=== PATIENT | male | born 1995 | race Hispanic/Latino ===

== ENCOUNTER 2016-09-26 12:55 | Observation (INO) | payer OTHER ==
[~2016-09-26] VITALS: Ht 175.3 cm; Wt 104.3 kg
[~2016-09-26 12:55] MED LIST: ABILIFY10 MG OR; ABILIFY2 MG OR; ABILIFY20 MG PO; ABILIFY30 MG PO; ALLERGY1 TAB PO; AMOXICILLI125 MG/5 M OR; AMOXICILLIN500 MG PO; AMOXICILLIN875 MG PO; AUGMENTIN875TAB PO; CATAPRES0.2 MG PO; CITALOPRAM10 MG PO; CLONIDINE0.1 MG OR; CONCERTA18 MG OR; CONCERTA18 MG PO; DESMOPRESSIN0.2 MG OR; INTUNIV4 MG PO; MEDDOSEPAK PO; MOTRIN200 MG PO; NASONEX50 MCG/AC NAB; OMEPRAZOLE20 M2 PO; PERIACTIN2 MG OR; POLYTRIM OU; PREDNISONE10 MG PO; PROMETHAZINE25 M1 RE; RONDEC-DM OR; SINGULAIR4 MG OR; TRAZODONE100 MG PO; TRAZODONE50 MG PO; TYLENOL OR; ULTRAM50 M1 PO; ZPAK OR
[2016-09-26] MEDS ORDERED: ABILIFY30 MG PO (13:07)
[2016-09-26 14:11] LABS: URINE BILIRUBIN - DIPSTICK NEGATIVE (NEGATIVE); URINE BLOOD DIPSTICK LARGE (NEGATIVE); URINE CLARITY CLEAR; URINE COLOR YELLOW; URINE GLUCOSE - DIPSTICK NEGATIVE (NEGATIVE); URINE KETONE NEGATIVE (NEGATIVE); URINE LEUK ESTERASE NEGATIVE (NEGATIVE); URINE PROTEIN - DIPSTICK TRACE mg/dL (NEG-TRACE); URINE SPECIFIC GRAVITY 1.025; URINE UROBILINOGEN - DIPSTICK 0.2 E.U./dL (0.2)
[2016-09-26 14:12] LABS: URINE NITRITE - DIPSTICK NEGATIVE (Negative)
[2016-09-26 14:12] LABS: HEMATOCRIT 46.1 % (39.0-50.0); IMMATURE GRANULOCYTES 0.4 % (0.0-1.0); MEAN CORPUSCULAR HGB 28.8 pG CALC (26.0-32.0); MEAN CORPUSCULAR HGB CONC 36.9 g/L CALC (32.0-36.0); NEUT# 5.31 thou/uL (1.82-7.42); RED BLOOD COUNT 5.91 mill/uL (4.70-6.10); RED CELL DISTRI WIDTH 12.6 % (11.5-15.5)
[2016-09-26 14:17] LABS: URINE RBC 50-100 RBC/hpf (0-5); URINE WBC 0-2 WBC/hpf (0-5)
[2016-09-26 14:31] LABS: ALBUMIN 4.8 g/dL (3.2-5.0); ALKALINE PHOSPHATASE 71 u/l (38-126); AMYLASE 92 u/l (30-110); BILIRUBIN, TOTAL 0.8 mg/dL (0.0-1.4); BUN 11 mg/dL (9-20); BUN/CREATININE RATIO 12 (12-20 (CALC)); CALCIUM 9.7 mg/dL (8.4-10.2); CARBON DIOXIDE 24 mmol/l (22-30); CHLORIDE 106 mmol/l (95-108); CREATININE 0.9 mg/dL (0.7-1.3); GFR > 60 ML/MIN (>=60 (CALC)); GFR FOR AFR.AMER. > 60 ML/MIN (>=60 (CALC)); GLUCOSE 87 mg/dL (75-110); LIPASE 71 u/l (23-300); SGOT/AST 18 u/l (17-59); SGPT/ALT 45 u/l (21-72); TOTAL PROTEIN 7.6 g/dL (6.3-8.2)
[2016-09-26 14:33] LABS: ANION GAP 15 (6-22 (CALC)); SODIUM 141 mmol/l (137-146)
[2016-09-26 16:20] VITALS: BP 116/70
[2016-09-26 19:12] VITALS: BP 116/78
[2016-09-27 03:28] VITALS: BP 92/64
[2016-09-27 05:53] LABS: HEMATOCRIT 44.2 % (39.0-50.0); IMMATURE GRANULOCYTES 0.5 % (0.0-1.0); MEAN CELL VOLUME 78.8 fL CALC (80.0-100.0); MEAN CORPUSCULAR HGB 28.5 pG CALC (26.0-32.0); MEAN CORPUSCULAR HGB CONC 36.2 g/L CALC (32.0-36.0); NEUT# 5.68 thou/uL (1.82-7.42); RED BLOOD COUNT 5.61 mill/uL (4.70-6.10); RED CELL DISTRI WIDTH 12.6 % (11.5-15.5)
[2016-09-27 06:07] LABS: ANION GAP 15 (6-22 (CALC)); BUN 10 mg/dL (9-20); BUN/CREATININE RATIO 10 (12-20 (CALC)); CALCIUM 9.7 mg/dL (8.4-10.2); CARBON DIOXIDE 25 mmol/l (22-30); CHLORIDE 106 mmol/l (95-108); CREATININE 0.9 mg/dL (0.7-1.3); GFR > 60 ML/MIN (>=60 (CALC)); GFR FOR AFR.AMER. > 60 ML/MIN (>=60 (CALC)); GLUCOSE 78 mg/dL (75-110); SODIUM 142 mmol/l (137-146)
[2016-09-27 07:51] VITALS: BP 130/75
== END 2016-09-27 15:34 | disposition home or self-care (01) | DRG 392 ==
LOC: ENPENDDIS → ED 12:55 → ED-I 14:40 → ED 14:52 → MS2 14:53
PROVIDERS: Emergency Medicine; ADMIT Internal Medicine; ATTEND Internal Medicine
DX: R10.31 Right lower quadrant pain (principal); F31.9 Bipolar disorder, unspecified; R11.2 Nausea with vomiting, unspecified; H91.90 Unspecified hearing loss, unspecified ear; Z96.21 Cochlear implant status; Z87.891 Personal history of nicotine dependence
CPT/HCPCS: G0378

== ENCOUNTER 2018-07-21 13:36 | Emergency (ER) | payer MEDICAID ==
[~2018-07-21] VITALS: Ht 175.3 cm; Wt 85.0 kg
[2018-07-21 14:10] LABS: IMMATURE GRANULOCYTES 0.5 % (0.0-5.0); MEAN CELL VOLUME 77.7 fL CALC (80.0-100.0); MEAN CORPUSCULAR HGB 27.7 pG CALC (26.0-32.0); MEAN CORPUSCULAR HGB CONC 35.7 g/L CALC (32.0-36.0); NEUT# 14.7 thou/uL (1.82-7.42); RED BLOOD COUNT 6.49 mill/uL (4.70-6.10); RED CELL DISTRI WIDTH 13.8 % (11.5-15.5)
[2018-07-21 14:17] LABS: HEMATOCRIT 50.4 % (39.0-50.0)
[2018-07-21 14:38] LABS: ANION GAP 18 (6-22 (CALC)); BUN 14 mg/dL (9-20); BUN/CREATININE RATIO 14 (12-20 (CALC)); CARBON DIOXIDE 22 mmol/l (22-30); CHLORIDE 103 mmol/l (95-108); GFR > 60 ML/MIN (>=60 (CALC)); GFR FOR AFR.AMER. > 60 ML/MIN (>=60 (CALC)); POTASSIUM 4.1 mmol/l (3.5-5.1); SODIUM 139 mmol/l (137-146)
[2018-07-21 14:39] LABS: URINE BLOOD DIPSTICK LARGE (NEGATIVE); URINE COLOR YELLOW; URINE GLUCOSE - DIPSTICK NEGATIVE (NEGATIVE); URINE KETONE NEGATIVE (NEGATIVE); URINE LEUK ESTERASE NEGATIVE (NEGATIVE); URINE PROTEIN - DIPSTICK 30 mg/dL (NEG-TRACE); URINE SPECIFIC GRAVITY >=1.030; URINE UROBILINOGEN - DIPSTICK 0.2 E.U./dL (0.2)
[2018-07-21 14:44] LABS: URINE BILIRUBIN - DIPSTICK SMALL (NEGATIVE)
[2018-07-21 14:53] LABS: URINE RBC TNTC RBC/hpf (0-5); URINE SQUAMOUS EPITHELIAL CELL FEW EPI/hpf (0-FEW)
[2018-07-21 14:55] LABS: URINE NITRITE - DIPSTICK NEGATIVE (Negative)
[2018-07-21] MEDS ORDERED: CEPHALEXIN500 MG PO (15:34)
[2018-07-21] MEDS ORDERED: TAMSULOSIN0.4 MG PO (15:34)
[2018-07-21] MEDS ORDERED: MOTRIN400 MG PO (15:34)
[2018-07-21 15:36] VITALS: BP 119/74
== END 2018-07-21 15:36 | disposition home or self-care (01) ==
LOC: ED 13:36
PROVIDERS: Family Medicine
DX: N13.2 Hydronephrosis with renal and ureteral calculous obstruction (principal); R31.9 Hematuria, unspecified; R10.32 Left lower quadrant pain; R10.31 Right lower quadrant pain